=== PATIENT | male | born 1990 | race Caucasian/White ===

== ENCOUNTER 2017-06-10 18:29 | Emergency (ER) | payer SELFPAY ==
[2017-06-10 18:36] VITALS: RESP 16; O2SAT 97
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
[2017-06-10 19:44] VITALS: BP 132/71; PULSE 70; TEMP 98.1
== END 2017-06-10 19:45 | disposition home or self-care (01) ==
PROC: 0HQ1XZZ Repair Face Skin, External Approach (ICD-10-PCS; principal; 2017-06-10)
DX: S01.411A Laceration without foreign body of right cheek and temporomandibular area, initial encounter (principal); F17.200 Nicotine dependence, unspecified, uncomplicated; V18.0XXA Pedal cycle driver injured in noncollision transport accident in nontraffic accident, initial encounter; Y99.8 Other external cause status; Y93.55 Activity, bike riding

== ENCOUNTER 2017-06-15 17:55 | Emergency (ER) | payer SELFPAY ==
[2017-06-15] MEDS ORDERED: CEPHALEXIN 500 MG CAP PO ONE (18:24)
[2017-06-15] MEDS ORDERED: DOXYCYCLINE HYCLATE 100 MG CAP/TAB PO ONE (18:24)
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
[2017-06-15 19:36] VITALS: BP 150/90; PULSE 90; RESP 16; TEMP 98.1; O2SAT 96
== END 2017-06-15 19:36 | disposition home or self-care (01) ==
DX: L03.113 Cellulitis of right upper limb (principal); L03.114 Cellulitis of left upper limb; F17.200 Nicotine dependence, unspecified, uncomplicated

== ENCOUNTER 2017-07-01 22:53 | Emergency (ER) | payer MEDICAID ==
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
[2017-07-02 00:04] LABS: % IMMATURE GRANULYOCYTES 0.4 % (0.0-1.1); ABSOLUTE IMMATURE GRANULOCYTES 0.07 10^3/uL (0.00-0.10); ADD DIFF? NO; ADD MORPH? NO; ADD SCAN? NO; ATYPICAL LYMPHOCYTE FLAG 0 (0-99); FRAGMENT RBC FLAG 0 (0-99); HEMATOCRIT 45.3 % (40.0-51.0); HEMOGLOBIN 15.3 g/dL (13.7-17.5); LEFT SHIFT FLG 0 (0-99); LIPEMIA HEMOLYSIS FLAG 90 (0-99); MEAN CELL HEMOGLOBIN 30.8 pg (27.9-34.1); MEAN CELL HEMOGLOBIN CONCENTR. 33.8 g/dL (32.4-36.7); MEAN CELL VOLUME 91.1 fL (81.5-99.8); MEAN PLATELET VOLUME 10.2 fL (8.7-11.7); PLATELET CLUMPS FLAG 0 (0-99); PLATELET COUNT 372 10^3/uL (150-400); RED BLOOD CELL COUNT 4.97 10^6/uL (4.40-6.38); RED CELL DISTRIBUTION WIDTH 12.2 % (11.5-15.2)
[2017-07-02 00:11] LABS: ANION GAP 9 mEq/L (8-16); BILIRUBIN,TOTAL 0.5 mg/dL (0.1-1.4); CALCIUM 10.1 mg/dL (8.5-10.4); CARBON DIOXIDE 26 mEq/l (22-31); CHLORIDE 102 mEq/L (97-110); CREATININE 0.9 mg/dL (0.7-1.3); GLOMERULAR FILTRATION RATE > 60; GLUCOSE 112 mg/dL (70-100); POTASSIUM 4.1 mEq/L (3.5-5.2); SODIUM 137 mEq/L (134-144)
[2017-07-02] MEDS ORDERED: CEPHALEXIN 500MG PREPACK#4 BTL TAKEHOME ONE (00:16)
[2017-07-02 00:37] VITALS: BP 150/100; PULSE 125; RESP 16; TEMP 98.4; O2SAT 95
== END 2017-07-02 00:36 | disposition home or self-care (01) ==
DX: L03.011 Cellulitis of right finger (principal); F17.200 Nicotine dependence, unspecified, uncomplicated

== ENCOUNTER 2017-08-10 18:53 | Emergency (ER) | payer OTHER, MEDICAID ==
[2017-08-10] MEDS ORDERED: OXYCODONE/APAP 5/325 TAB PO ONE (19:44)
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
[2017-08-10] MEDS ORDERED: SKIN ADHESIVE (DERMABOND) 1 EACH TP ONE (19:50)
[2017-08-10 20:44] VITALS: BP 133/74; PULSE 68; RESP 18; TEMP 98.2; O2SAT 98
== END 2017-08-10 20:45 | disposition home or self-care (01) ==
PROC: 0HQ1XZZ Repair Face Skin, External Approach (ICD-10-PCS; principal; 2017-08-10)
DX: S01.112A Laceration without foreign body of left eyelid and periocular area, initial encounter (principal); S80.212A Abrasion, left knee, initial encounter; S69.92XA Unspecified injury of left wrist, hand and finger(s), initial encounter; S29.9XXA Unspecified injury of thorax, initial encounter; F17.200 Nicotine dependence, unspecified, uncomplicated; V28.4XXA Motorcycle driver injured in noncollision transport accident in traffic accident, initial encounter; Y92.410 Unspecified street and highway as the place of occurrence of the external cause; Y99.8 Other external cause status; Y93.89 Activity, other specified
CPT/HCPCS: L3908

== ENCOUNTER 2017-08-23 13:48 | Emergency (ER) | payer OTHER, MEDICAID ==
[2017-08-23] MEDS ORDERED: NS 1,000 ML IV ONE (13:56)
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
--- NOTE | 2017-08-23 14:00 | CPEKG ---
Heart Rate: 134 RR Interval: 448 P-R Interval: 132 QRSD Interval: 86 QT Interval: 308 QTC Interval: 460 P [place]: 75 QRS [place]: 79 T Wave [place]: 52 EKG Severity - OTHERWISE NORMAL ECG - EKG Impression: SINUS TACHYCARDIA Electronically Signed By: Dave Damian 23-Aug-2017 18:34:25
--- NOTE | 2017-08-23 14:00 | CPEKG ---
Heart Rate: 134 RR Interval: 448 P-R Interval: 132 QRSD Interval: 86 QT Interval: 308 QTC Interval: 460 P [place]: 75 QRS [place]: 79 T Wave [place]: 52 EKG Severity - OTHERWISE NORMAL ECG - EKG Impression: SINUS TACHYCARDIA Electronically Signed By: Dave Damian 23-Aug-2017 18:34:25
[2017-08-23 14:12] LABS: PLATELET COUNT 430 10^3/uL (150-400)
[2017-08-23 14:19] VITALS: RESP 18
[2017-08-23 14:22] LABS: INR 0.98 (0.83-1.16); PROTIME(PATIENT) 12.9 SEC (12.0-15.0)
[2017-08-23 17:32] VITALS: BP 148/101; PULSE 76; TEMP 98.1; O2SAT 96
== END 2017-08-23 17:31 | disposition home or self-care (01) ==
LOC: EDUNIT#
DX: T40.1X1A Poisoning by heroin, accidental (unintentional), initial encounter (principal); F17.200 Nicotine dependence, unspecified, uncomplicated; E86.9 Volume depletion, unspecified; V57.5XXA Driver of pick-up truck or van injured in collision with fixed or stationary object in traffic accident, initial encounter; Y92.410 Unspecified street and highway as the place of occurrence of the external cause; Y99.8 Other external cause status; Y93.89 Activity, other specified
CPT/HCPCS: 80305; G0480